=== PATIENT | male | born 1980 | race Caucasian/White ===

== ENCOUNTER → 2017-10-16 07:48 | Outpatient (CLI) | payer OTHER, SELFPAY ==
--- NOTE | 2017-10-16 07:53 | US_ITS ---
US abdomen limited: HISTORY: ITS.REASON: ELEVATED LIVER ENZYMES ORDERING PHYSICIAN: Galilea Wall PATIENT AGE: 37 years COMPARISON: None FINDINGS: PANCREAS: Unremarkable. No obvious mass or abnormal fluid collection. No ductal dilatation LIVER: No focal liver lesions demonstrated. Homogeneous echogenicity. No intrahepatic biliary ductal dilatation evident. There is some increased echogenicity of the liver suggesting mild hepatic steatosis. RIGHT KIDNEY: Unremarkable. Normal size and echogenicity. No hydronephrosis GALLBLADDER: No gallstones, gallbladder wall thickening, pericholecystic fluid, or biliary dilatation. IMPRESSION: Fatty liver otherwise negative
== END ==
LOC: RAD 07:50
PROVIDERS: Family Provider Nurse Practitioner; PCP Nurse Practitioner Family; Visit Provider Nurse Practitioner Family
DX: R74.8 Abnormal levels of other serum enzymes (principal)
CPT/HCPCS: 76705

== ENCOUNTER → 2020-12-07 12:26 | Outpatient (CLI) | payer OTHER, SELFPAY | PROVIDERS: PCP Nurse Practitioner Family; Visit Provider Nurse Practitioner Family | DX: G47.33 Obstructive sleep apnea (adult) (pediatric) (principal); I10 Essential (primary) hypertension; R40.0 Somnolence; R51.9 Headache, unspecified; R06.83 Snoring | CPT/HCPCS: 95806 ==

== ENCOUNTER → 2021-09-14 11:39 | Outpatient (CLI) | payer OTHER, SELFPAY | PROVIDERS: Visit Provider Nurse Practitioner | DX: U07.1 COVID-19 (principal) | CPT/HCPCS: C9803; U0003; U0005 ==

== ENCOUNTER 2023-09-12 13:47 | Outpatient (CLI) | payer OTHER, SELFPAY ==
--- NOTE | 2023-09-12 13:51 | XR_ITS ---
FINAL REPORT CLINICAL HISTORY: left elbow injury 06/2023 COMPARISON: None FINDINGS: AP, oblique, and lateral views of the left elbow were obtained. There is no prior exam for comparison. There is no acute fracture or dislocation. Joint space is preserved. There is no joint effusion or other soft tissue abnormality. IMPRESSION: No acute osseous abnormality of the left elbow. Reviewed, Interpreted and Dictated by Jerson Dillard III, MD Transcribed by Aniya Kwok Authenticated and [facility]
== END 2023-09-12 23:59 ==
LOC: RAD 13:48
PROVIDERS: PCP Nurse Practitioner Family; Visit Provider Nurse Practitioner Family
DX: M25.522 Pain in left elbow (principal); Y93.59 Activity, other involving other sports and athletics played individually
CPT/HCPCS: 73080

== ENCOUNTER 2023-11-06 10:01 | Outpatient (POV) | payer OTHER, SELFPAY | END 2023-11-06 23:59 | disposition home or self-care (01) | LOC: SC 10:02 | PROVIDERS: PCP Nurse Practitioner Family; Visit Provider Dermatology | DX: Z00.00 Encounter for general adult medical examination without abnormal findings (principal) ==

== ENCOUNTER 2025-03-24 16:09 | Outpatient (CLI) | payer OTHER, SELFPAY ==
[2025-03-24 18:44] LABS: Albumin Level 4.1 g/dl (3.5-5.0); Chloride 100 mmol/L (98-107); Sodium 135 mmol/L (136-145)
[2025-03-24 18:45] LABS: Potassium 3.9 mmoL/L (3.5-5.1)
[2025-03-24 18:47] LABS: Alanine Aminotransferase 60 U/L (12-78); Albumin/Globulin Ratio 1.1 (1.1-1.8); Anion Gap 12.9 mEq/L (5-15); Aspartate Amino Transferase 48 U/L (17-59); Blood Urea Nitrogen 16 mg/dl (9-20); Carbon Dioxide 26 mmol/L (22.0-30.0); Cholesterol 201 mg/dl (140-200); Creatinine,Serum 0.80 mg/dl (0.66-1.25); Estimated Glomerular Filt Rate 104 ml/min (>60); GFR (African American) 126 ML/MIN (>60); Globulin 3.7 g/dL (1.3-3.2); Total Protein,Serum 7.8 g/dl (6.3-8.2); Triglycerides 166 mg/dl (30-150)
[2025-03-24 18:48] LABS: Alkaline Phosphatase 76 U/L (38-126); Bilirubin,Total 0.6 mg/dl (0.2-1.3); Calcium 9.8 mg/dl (8.4-10.2); Glucose 86 mg/dl (74-100); HDL Cholesterol 69 mg/dl (40-60); Magnesium 2.0 mg/dl (1.6-2.3)
[2025-03-24 19:35] LABS: Thyroid Stimulating Hormone 1.55 uIU/mL (0.465-4.68)
[2025-03-24 19:53] LABS: Vitamin B12 548 pg/mL (239-931)
--- OUTSIDE RECORDS SUMMARY | 2025-03-25 11:31 | XMS_ITS | Clinical Summary ---
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 Role Phone Unavailable Primary Care Provider Unavailabl e Allergies No known active allergies Medications No known medications Social History Tobacco Use Types Packs/Day Years Used Date Smoking Tobacco: Never Smokeless Tobacco: Current Chew Alcohol Use Standard Drinks/Week Comments Yes 0 (1 standard drink = 0.6 oz pur e alcohol) 6-8 beers a day Sex and Gender Information Value Date Recorded Sex Assigned at Not on file Legal Sex Male 1:03 PM EST Gender Identity Not on file Sexual Orientation Not on file Obstetrics History Last Filed Vital Signs Vital Sign Reading Time Taken Comments Blood Pressure 155/100 09/16/2018 3:30 PM EST Pulse 75 09/16/2018 3:30 PM EST Temperature 36.7 C (98 F) 09/16/2018 1:23 PM EST Respiratory Rate 18 09/16/2018 3:30 PM EST Oxygen Saturation 96% 09/16/2018 3:30 PM EST Inhaled Oxygen Concentration - - Weight 111.1 kg (245 lb) 09/16/2018 1:23 PM EST Height 182.9 cm (6') 09/16/2018 1:23 PM EST Body Mass Index 33.23 09/16/2018 1:23 PM EST Plan of Treatment Health Maintenance Due Date Last Done Comments Annual Wellness Exam 1982 DTaP/TDaP/Td (1 - Tdap) 1998 Hepatitis B Vaccine (1 of 3 - 19+ 3-dose series) 1998 Cologuard 2024 Colon Cancer Screening 2024 Colonoscopy 2024 FIT 2024 Sigmoidoscopy 2024 Virtual Colonography 2024 COVID-19 Vaccine ( - 2023-2 5 season) 2024 Influenza Vaccine (#1) 2025 Meningococcal B Vaccine Aged Out No l onger eligible based on patient's age to complete this topic Pneumococcal Vaccine 0-49 Aged Out No longer eligible based on patient's age to complete this topic Insurance [facility] CHOICE PLUS [facility] CHOICE PLUS
== END 2025-03-24 23:59 | disposition home or self-care (01) ==
LOC: LAB.DROPOF 03-25 11:30
PROVIDERS: PCP Nurse Practitioner Family; Visit Provider Nurse Practitioner Family
DX: R63.5 Abnormal weight gain (principal); I10 Essential (primary) hypertension
CPT/HCPCS: 80053; 80061; 82607; 83735; 84443